=== PATIENT | female | born 1985 ===

== ENCOUNTER 2018-02-15 19:59 | Inpatient (IN) | payer OTHER ==
[~2018-02-15] VITALS: Ht 154.9 cm; Wt 2.3 kg
[2018-02-15] MEDS ORDERED: PRENATAL 19 TA1 EACH PO (20:01)
[2018-02-15] MEDS ORDERED: OMEGA 3 1,0001 EACH PO (20:03)
== END 2018-02-18 15:05 | disposition home or self-care (01) | DRG 765 ==
LOC: LDR 19:59 → OB/GYN 19:59
PROVIDERS: Specialist
PROC: 4A033R1 Measurement of Arterial Saturation, Peripheral, Percutaneous Approach (ICD-10-PCS; 2018-02-15)
PROC: 4A1HXCZ Monitoring of Products of Conception, Cardiac Rate, External Approach (ICD-10-PCS; 2018-02-15)
PROC: 10D00Z1 Extraction of Products of Conception, Low, Open Approach (ICD-10-PCS; principal; 2018-02-15 20:00)
DX: O14.14 Severe pre-eclampsia complicating childbirth (principal); O36.5930 Maternal care for other known or suspected poor fetal growth, third trimester, not applicable or unspecified; O69.1XX0 Labor and delivery complicated by cord around neck, with compression, not applicable or unspecified; Z3A.39 39 weeks gestation of pregnancy; Z37.0 Single live birth

== ENCOUNTER 2018-02-20 12:19 | Emergency (ER) | payer OTHER ==
[~2018-02-20] VITALS: Ht 154.9 cm; Wt 73.5 kg
[~2018-02-20 12:19] MED LIST: OMEGA 3 1,0001 EACH PO; PRENATAL 19 TA1 EACH PO
== END 2018-02-20 13:57 | disposition home or self-care (01) ==
LOC: ER 12:19
DX: I10 Essential (primary) hypertension (principal)